=== PATIENT | male | born 1975 | race African-American/Black ===

== ENCOUNTER 2016-12-06 11:31 | Emergency (ER) | payer OTHER ==
[~2016-12-06] VITALS: Ht 182.9 cm; Wt 101.2 kg
[2016-12-06 11:41] VITALS: BP 157/94
--- NOTE | 2016-12-06 12:39 | NUR ---
jakob hammond at bedside for eval.
[2016-12-06] MEDS ORDERED: IBUPROFEN 600 MG TABLET PO ONE ×2 (12:46→13:00)
--- NOTE | 2016-12-06 12:53 | NUR ---
provided w/ ice pain and soft neck collar for comfort.
== END 2016-12-06 13:05 | disposition home or self-care (01) ==
LOC: ER 11:34
DX: S16.1XXA Strain of muscle, fascia and tendon at neck level, initial encounter (principal); I10 Essential (primary) hypertension; W86.8XXA Exposure to other electric current, initial encounter; Y93.89 Activity, other specified; Y92.89 Other specified places as the place of occurrence of the external cause; Y99.9 Unspecified external cause status
CPT/HCPCS: 99283; A4606; Z7610

== ENCOUNTER 2017-04-30 04:46 | Emergency (ER) | payer OTHER ==
[~2017-04-30] VITALS: Ht 182.9 cm; Wt 104.3 kg
--- NOTE | 2017-04-30 04:48 | NUR ---
Megan mansfield in EDM - 04/30/[address] Suh at [facility].
[2017-04-30 04:49] VITALS: BP 150/116
--- NOTE | 2017-04-30 05:03 | NUR ---
DR. TONG AT BEDSIDE FOR EVAL.
== END 2017-04-30 05:12 | disposition home or self-care (01) ==
LOC: ER 04:51
DX: L73.9 Follicular disorder, unspecified (principal); I10 Essential (primary) hypertension
CPT/HCPCS: 99283; A4606; Z7610